=== PATIENT | female | born 1990 ===

== ENCOUNTER 2018-04-14 18:14 | Emergency (ER) | payer SELFPAY ==
[2018-04-14 18:30] VITALS: BP 129/78
[2018-04-14] MEDS ORDERED: MOTRIN PO ONE (21:18)
--- NOTE | 2018-04-14 22:00 | Emergency Department Report ---
HPI - General Chief Complaint: Fall Time Seen by Provider: 04/14/18 21:17 - HPI HPI: This is a 28-year-old female who presents to ED complaining of knee pain status post fall at [facility] on 04/11/2018. Patient states she was shopping at [facility] when she slipped and fell. She states that she fell on her knee. Patient states since then she has had left knee pain. Patient describes pain as throbbing, with a burning sensation. Patient states pain is worsened with walking upstairs, second movements. She denies loss of consciousness after incident ED Past Medical Hx - Past Medical History Previous Medical History?: No Hx Hypertension: No Hx Congestive Heart Failure: No Hx Diabetes: No Hx Deep Vein Thrombosis: No Hx Renal Disease: No Hx Sickle Cell Disease: No Hx Seizures: No Hx Asthma: No Hx COPD: No Hx HIV: No - Surgical History Past Surgical History?: No - Social History Smoking Status: Never Smoker Substance Use Type: Alcohol - Medications Home Medications: Home Medications Medication Instructions Recorded Confirmed Last Taken Type Penicillin Vk [Veetids TAB] 500 mg PO Q8H #30 tablet 11/25/15 Unknown Rx Ibuprofen [Motrin 800 MG tab] 800 mg PO Q8HR PRN #15 tablet 04/14/18 Unknown Rx ED Review of Systems ROS: Stated complaint: SLIP&FALL Other details as noted in HPI Constitutional: denies: chills, fever Eyes: denies: eye pain, eye discharge, vision change Endocrine: no symptoms reported Gastrointestinal: denies: abdominal pain, nausea, diarrhea Genitourinary: denies: urgency, dysuria, discharge Musculoskeletal: myalgia. denies: joint swelling, arthralgia Skin: denies: rash, lesions Neurological: denies: headache, weakness, paresthesias Psychiatric: denies: anxiety, depression Hematological/Lymphatic: denies: easy bleeding, easy bruising Physical Exam - Physical Exam Vital Signs: Vital Signs 04/14/18 18:28 Temperature 98.4 F Pulse Rate 84 Respiratory 16 Rate Blood Pressure 129/78 O2 Sat by Pulse 98 Oximetry Physical Exam: GENERAL: Alert and oriented x3, no apparent distress, Normal Gait, atraumatic. HEAD: Head is normocephalic and a-traumatic. NECK: Supple. Non edematous, No carotid bruits. No lymphadenopathy or thyromegaly. No C-spine tenderness LUNGS: Symetrical with respiration, No wheezing, no rales or crackles, CTAB. HEART: S1, S2 present, regular rate and rhythm without murmur, no rubs, no gallops. Non tender to palpation A BACK: Full range of motion, no spinal tenderness, nontender to palpation. EXTREMITIES/MUSCULOSKELETAL: No cyanosis, clubbing, rash, lesions or edema. Full ROM bilaterally. UE/LE Pulses 2+ bilaterally. LE 5+ strength bilaterally , left knee tenderness to palpation, nonswollen, nonerythematous, pain with flexion. NEUROLOGIC: The patient is cooperative with no focal neurologic deficits. Cranial nerves II through XII are grossly intact. Normal spee SKIN: Warm and dry, No lesions, No ulceration or induration present. ED Course Vital Signs 04/14/18 18:28 Temperature 98.4 F Pulse Rate 84 Respiratory 16 Rate Blood Pressure 129/78 O2 Sat by Pulse 98 Oximetry ED Medical Decision Making - Radiology Data Radiology results: report reviewed, image reviewed FINAL REPORT PROCEDURE: XR KNEE 1-2V LT TECHNIQUE: LEFT knee radiographs, AP and lateral views. CPT 11988 HISTORY: pain COMPARISON: No prior studies are available for comparison. FINDINGS: Fracture (s) and/or Dislocation(s): None . Alignment: Normal . Joint space(s): Normal . Soft tissues: Normal . Bone mineralization: Normal . Foreign bodies: None . IMPRESSION: Normal Examination. Transcribed By: [facility] [place] Dictated By: LAOTYA REID Electronically Authenticated By: LATOYA REID Signed Date/Time: 04/14/18 2223 - Medical Decision Making 28-year-old female presents with knee pain from fall ED course: Patient received [facility] ED for pain, x-rays taken X-ray shows no acute fracture or dislocation. Discussed this findings with the patient. I discussed with the patient to follow up with primary care physician. Vital signs are normal patient has not acute distress. Critical care attestation.: If time is entered above; I have spent that time in minutes in the direct care of this critically ill patient, excluding procedure time. ED Disposition Clinical Impression: Knee pain, left Qualifiers: Chronicity: acute Qualified Code(s): M25.562 - Pain in left knee Fall from slipping Qualifiers: Encounter type: initial encounter Qualified Code(s): W01.0XXA - Fall on same level from slipping, tripping and stumbling without subsequent striking against object, initial encounter Disposition: TO HOME OR SELFCARE Is pt being admited?: No Does the pt Need Aspirin: No Condition: Stable Instructions: Knee Sprain (ED), Knee Pain (ED), Knee Exercises (GEN) Additional Instructions: Make sure to follow up with the primary care physician as discussed. Take all your medications as you've been prescribed. If you have any worsening symptoms or develop new symptoms please return to ED immediately. Prescriptions: Ibuprofen [Motrin 800 MG tab] 800 mg PO Q8HR PRN #15 tablet PRN Reason: Sore Throat Referrals: PRIMARY CARE,MD [Primary Care Provider] - 3-5 Days [facility] [Outside] - 3-5 Days [facility] [Outside] - 3-5 Days Forms: Accompanied Note, Work/School Release Form(ED) Time of Disposition: 22:09
--- NOTE | 2018-04-14 22:22 | XRay Report ---
FINAL REPORT PROCEDURE: XR KNEE 1-2V LT TECHNIQUE: LEFT knee radiographs, AP and lateral views. CPT 28109 HISTORY: pain COMPARISON: No prior studies are available for comparison. FINDINGS: Fracture (s) and/or Dislocation(s): None . Alignment: Normal . Joint space(s): Normal . Soft tissues: Normal . Bone mineralization: Normal . Foreign bodies: None . IMPRESSION: Normal Examination.
== END 2018-04-14 22:18 | disposition home or self-care (01) ==
LOC: ED 18:14
DX: M25.562 Pain in left knee (principal); W01.0XXA Fall on same level from slipping, tripping and stumbling without subsequent striking against object, initial encounter; Y93.89 Activity, other specified; Y92.89 Other specified places as the place of occurrence of the external cause; Y99.8 Other external cause status